=== PATIENT | female | born 1935 | race Two or more races ===

== ENCOUNTER → 2016-10-24 | Outpatient (CLI) | payer MEDICARE, OTHER | END | disposition home or self-care (01) | LOC: Rad HDHVI 10:17 | PROVIDERS: ATTEND Internal Medicine Cardiovascular Disease | DX: Z01.818 Encounter for other preprocedural examination (principal); I70.0 Atherosclerosis of aorta; M51.34 Other intervertebral disc degeneration, thoracic region; R07.9 Chest pain, unspecified | CPT/HCPCS: 71020 ==

== ENCOUNTER → 2016-12-14 | Outpatient (CLI) | payer MEDICARE, OTHER ==
[2016-12-14 12:06] LABS: Urine Bilirubin Negative (Negative); Urine Blood Negative /uL (Negative); Urine Color Yellow (Yellow); Urine Glucose Normal (Normal); Urine Ketone Negative (Negative); Urine Nitrite Negative (Negative); Urine Urobilinogen Normal (Negative); Urine pH 7.5 (5.0-8.0)
[2016-12-14 12:10] LABS: Basophils # (auto) 0 uL; Basophils % (auto) 0.5 % (0.0-2.0); Eosinophils # (auto) 0.2 uL; Eosinophils % (auto) 3.6 % (0.0-7.0); Hematocrit 46.7 % (36.0-46.0); Hemoglobin 15.4 g/dL (12.2-16.2); Lymphocytes # (auto) 1.4 uL; Lymphocytes % (auto) 22.6 % (10.0-50.0); Mean Corpuscular Hemoglobin 30.4 pg (28.0-32.0); Mean Corpuscular Hgb Conc. 32.9 g/dL (32.0-36.0); Mean Corpuscular Volume 92.3 fL (80.0-100.0); Mean Platelet Volume 10.8 fL (7.4-10.4); Monocytes # (auto) 0.5 uL; Monocytes % (auto) 7.9 % (0.0-12.0); Neutrophils % (auto) 65.4 % (37.0-80.0); Platelet Count (auto) 209 10^3/uL (140-450); Red Cell Distribution Width 14.2 % (11.6-16.0); White Blood Cell 6.1 10^3/uL (4.4-10.8)
[2016-12-14 12:39] LABS: Albumin 3.6 g/dL (3.4-5.0); BUN/Creatinine Ratio 21.5; Bilirubin, Direct 0.2 mg/dL (0-0.2); Bilirubin, Total 0.5 mg/dL (0.2-1.0); Calcium 8.6 mg/dL (8.5-10.1); Potassium 4.3 mmol/L (3.5-5.1); Total Protein 7.7 g/dL (6.4-8.2)
== END | disposition home or self-care (01) ==
LOC: LAB 09:03
PROVIDERS: ATTEND Internal Medicine Cardiovascular Disease
DX: I10 Essential (primary) hypertension (principal); E78.00 Pure hypercholesterolemia, unspecified; K74.1 Hepatic sclerosis; E11.9 Type 2 diabetes mellitus without complications; E03.9 Hypothyroidism, unspecified; D64.9 Anemia, unspecified; E55.9 Vitamin D deficiency, unspecified; N39.0 Urinary tract infection, site not specified
CPT/HCPCS: 36415; 80048; 80061; 80076; 81003; 82306; 83036; 84439; 84443; 85025

== ENCOUNTER → 2017-06-27 | Outpatient (CLI) | payer MEDICARE, OTHER ==
[2017-06-27 12:41] LABS: Urine Bilirubin Negative (Negative); Urine Blood Negative /uL (Negative); Urine Color Yellow (Yellow); Urine Glucose Normal (Normal); Urine Ketone Negative (Negative); Urine Nitrite Negative (Negative); Urine RBC 1 /hpf (0 - 4); Urine Squamous Epithelial Cell FEW /hpf (<5); Urine Urobilinogen Normal (Negative)
== END | disposition home or self-care (01) ==
LOC: LAB 09:45
PROVIDERS: ATTEND Internal Medicine Cardiovascular Disease
DX: N39.0 Urinary tract infection, site not specified (principal)
CPT/HCPCS: 81001; 87086

== ENCOUNTER → 2017-07-25 | Outpatient (CLI) | payer MEDICARE, OTHER ==
[2017-07-25 11:52] LABS: Basophils # (auto) 0 uL; Basophils % (auto) 0.6 % (0.0-2.0); Eosinophils # (auto) 0.2 uL; Eosinophils % (auto) 3.8 % (0.0-7.0); Hematocrit 46.1 % (36.0-46.0); Hemoglobin 15.2 g/dL (12.2-16.2); Lymphocytes # (auto) 1.3 uL; Lymphocytes % (auto) 21.7 % (10.0-50.0); Mean Corpuscular Hemoglobin 30.7 pg (28.0-32.0); Mean Corpuscular Hgb Conc. 32.9 g/dL (32.0-36.0); Mean Corpuscular Volume 93.2 fL (80.0-100.0); Monocytes # (auto) 0.4 uL; Monocytes % (auto) 7.6 % (0.0-12.0); Neutrophils # (auto) 3.9 uL; Neutrophils % (auto) 66.3 % (37.0-80.0); Nucleated Red Blood Cells % 0.3 %; Platelet Count (auto) 210 10^3/uL (140-450); Red Blood Cells 4.94 10^6/uL (4.0-5.20); Red Cell Distribution Width 13.6 % (11.8-14.3); White Blood Cell 5.9 10^3/uL (4.4-10.8)
[2017-07-25 11:54] LABS: Urine Blood TRACE /uL (Negative); Urine Specific Gravity 1.013 (1.001-1.035)
[2017-07-25 12:16] LABS: Potassium 4.2 mmol/L (3.5-5.1)
[2017-07-25 12:17] LABS: Albumin 3.6 g/dL (3.4-5.0); Bilirubin, Direct 0.1 mg/dL (0-0.2); Bilirubin, Total 0.5 mg/dL (0.2-1.0); Calcium 8.5 mg/dL (8.5-10.1); Total Protein 7.3 g/dL (6.4-8.2)
== END | disposition home or self-care (01) ==
LOC: LAB 08:10
PROVIDERS: ATTEND Internal Medicine Cardiovascular Disease
DX: E78.00 Pure hypercholesterolemia, unspecified (principal); D64.9 Anemia, unspecified; I10 Essential (primary) hypertension; E11.9 Type 2 diabetes mellitus without complications; E03.9 Hypothyroidism, unspecified; E55.9 Vitamin D deficiency, unspecified; K74.1 Hepatic sclerosis; N39.0 Urinary tract infection, site not specified
CPT/HCPCS: 36415; 80048; 80061; 80076; 81003; 82306; 83036; 84443; 85025

== ENCOUNTER → 2018-01-16 | Outpatient (CLI) | payer MEDICARE, OTHER ==
[2018-01-16 12:17] LABS: Urine Blood TRACE /uL (Negative); Urine Specific Gravity 1.012 (1.001-1.035)
[2018-01-16 12:48] LABS: Albumin 3.7 g/dL (3.4-5.0); BUN/Creatinine Ratio 18.4; Bilirubin, Total 0.6 mg/dL (0.2-1.0); Calcium 9.2 mg/dL (8.5-10.1); Potassium 4.2 mmol/L (3.5-5.1); Total Protein 7.5 g/dL (6.4-8.2)
== END | disposition home or self-care (01) ==
LOC: LAB 08:58
PROVIDERS: ATTEND Internal Medicine
DX: E78.5 Hyperlipidemia, unspecified (principal); E03.9 Hypothyroidism, unspecified; I10 Essential (primary) hypertension; N39.0 Urinary tract infection, site not specified; E11.9 Type 2 diabetes mellitus without complications; E78.00 Pure hypercholesterolemia, unspecified; J44.9 Chronic obstructive pulmonary disease, unspecified
CPT/HCPCS: 36415; 80053; 80061; 81003; 84439; 84443; 87086

== ENCOUNTER → 2018-04-30 | Outpatient (CLI) | payer OTHER ==
[2018-04-30 12:25] LABS: Urine Blood Negative /uL (Negative); Urine Specific Gravity 1.007 (1.001-1.035)
== END | disposition home or self-care (01) ==
LOC: LAB 09:13
PROVIDERS: ATTEND Internal Medicine
DX: N39.0 Urinary tract infection, site not specified (principal)
CPT/HCPCS: 81003; 87086

== ENCOUNTER → 2018-07-18 | Outpatient (CLI) | payer OTHER ==
[2018-07-18 12:28] LABS: Basophils # (auto) 0 uL; Basophils % (auto) 0.6 % (0.0-2.0); Eosinophils # (auto) 0.2 uL; Eosinophils % (auto) 3.6 % (0.0-7.0); Hematocrit 50.1 % (36.0-46.0); Hemoglobin 16.2 g/dL (12.2-16.2); Lymphocytes # (auto) 1.1 uL; Lymphocytes % (auto) 18.4 % (10.0-50.0); Mean Corpuscular Hemoglobin 30.4 pg (28.0-32.0); Mean Corpuscular Hgb Conc. 32.4 g/dL (32.0-36.0); Mean Corpuscular Volume 93.8 fL (80.0-100.0); Monocytes # (auto) 0.4 uL; Monocytes % (auto) 6.4 % (0.0-12.0); Neutrophils # (auto) 4.3 uL; Nucleated Red Blood Cells % 0.2 %; Platelet Count (auto) 200 10^3/uL (140-450); Red Blood Cells 5.34 10^6/uL (4.0-5.20); Red Cell Distribution Width 14.5 % (11.8-14.3); White Blood Cell 6.1 10^3/uL (4.4-10.8)
[2018-07-18 12:31] LABS: Urine Blood Negative /uL (Negative); Urine Specific Gravity 1.013 (1.001-1.035)
[2018-07-18 13:15] LABS: Albumin 3.4 g/dL (3.4-5.0); Calcium 8.4 mg/dL (8.5-10.1); Free T4 (Free Thyroxine) 1.3 ng/dL (0.89-1.76)
[2018-07-18 13:19] LABS: BUN/Creatinine Ratio 18.9; Bilirubin, Total 0.7 mg/dL (0.2-1.0); Total Protein 7.3 g/dL (6.4-8.2)
== END | disposition home or self-care (01) ==
LOC: LAB 09:30
PROVIDERS: ATTEND Internal Medicine
DX: E78.5 Hyperlipidemia, unspecified (principal); I10 Essential (primary) hypertension; E03.9 Hypothyroidism, unspecified; E55.9 Vitamin D deficiency, unspecified; E11.9 Type 2 diabetes mellitus without complications; D51.9 Vitamin B12 deficiency anemia, unspecified; N39.0 Urinary tract infection, site not specified
CPT/HCPCS: 36415; 80053; 80061; 81003; 82306; 82607; 83036; 84439; 84443; 85025; 87086

== ENCOUNTER → 2018-10-16 | Outpatient (CLI) | payer MEDICARE, BC | END | disposition home or self-care (01) | LOC: LAB 08:57 | PROVIDERS: ATTEND Internal Medicine | DX: E55.9 Vitamin D deficiency, unspecified (principal) | CPT/HCPCS: 82306 ==

== ENCOUNTER → 2019-08-12 | Outpatient (CLI) | payer MEDICARE, BC ==
[2019-08-12 12:27] LABS: Basophils # (auto) 0 uL; Basophils % (auto) 0.6 % (0.0-2.0); Eosinophils # (auto) 0.3 uL; Eosinophils % (auto) 4.2 % (0.0-7.0); Hematocrit 48.3 % (36.0-46.0); Hemoglobin 15.9 g/dL (12.2-16.2); Lymphocytes # (auto) 1.4 uL; Lymphocytes % (auto) 22.8 % (10.0-50.0); Mean Corpuscular Hemoglobin 30.9 pg (28.0-32.0); Mean Corpuscular Volume 93.7 fL (80.0-100.0); Monocytes # (auto) 0.5 uL; Monocytes % (auto) 7.7 % (0.0-12.0); Neutrophils # (auto) 3.9 uL; Neutrophils % (auto) 64.7 % (37.0-80.0); Nucleated Red Blood Cells % 0.1 %; Platelet Count (auto) 189 10^3/uL (140-450); Red Blood Cells 5.15 10^6/uL (4.0-5.20); Red Cell Distribution Width 14.4 % (11.8-14.3)
[2019-08-12 12:31] LABS: Urine Blood TRACE /uL (Negative); Urine Specific Gravity 1.005 (1.001-1.035)
[2019-08-12 12:45] LABS: Potassium 4.2 mmol/L (3.5-5.1)
[2019-08-12 12:47] LABS: Free T4 (Free Thyroxine) 1.42 ng/dL (0.89-1.76)
[2019-08-12 12:56] LABS: Albumin 3.6 g/dL (3.4-5.0); BUN/Creatinine Ratio 19.7; Bilirubin, Total 0.5 mg/dL (0.2-1.0); Calcium 8.9 mg/dL (8.5-10.1); Total Protein 7.5 g/dL (6.4-8.2)
== END | disposition home or self-care (01) ==
LOC: Rad HDHVI 09:29
PROVIDERS: ATTEND Internal Medicine
DX: M85.9 Disorder of bone density and structure, unspecified (principal); M85.80 Other specified disorders of bone density and structure, unspecified site; E03.9 Hypothyroidism, unspecified; K90.9 Intestinal malabsorption, unspecified; N39.0 Urinary tract infection, site not specified; D51.9 Vitamin B12 deficiency anemia, unspecified; Z79.899 Other long term (current) drug therapy
CPT/HCPCS: 36415; 77078; 80053; 80061; 81003; 82306; 82607; 83036; 84439; 84443; 85025; 87086

== ENCOUNTER → 2019-11-11 | Outpatient (CLI) | payer MEDICARE, BC ==
[2019-11-11 12:36] LABS: Albumin 3.5 g/dL (3.4-5.0); Bilirubin, Direct 0.1 mg/dL (0-0.2); Bilirubin, Total 0.6 mg/dL (0.2-1.0); Total Protein 7.8 g/dL (6.4-8.2)
[2019-11-11 12:52] LABS: Hepatitis B Surface Antibody Negative
[2019-11-11 17:26] LABS: Hepatitis B Core Total AB Negative; Hepatitis C Antibody Negative (Negative)
[2019-11-11 17:28] LABS: Hepatitis B Surface Antigen Negative (Negative)
[2019-11-12 20:18] LABS: Hepatitis A Total Antibody Negative
== END | disposition home or self-care (01) ==
LOC: LAB 10:27
PROVIDERS: ATTEND Internal Medicine
DX: Z79.899 Other long term (current) drug therapy (principal); Z20.5 Contact with and (suspected) exposure to viral hepatitis; Z11.59 Encounter for screening for other viral diseases
CPT/HCPCS: 36415; 80076; 86704; 86706; 86708; 86803; 87340

== ENCOUNTER → 2019-12-16 | Outpatient (CLI) | payer MEDICARE, BC ==
[2019-12-16 12:44] LABS: Albumin 3.4 g/dL (3.4-5.0); Bilirubin, Direct 0.1 mg/dL (0-0.2); Bilirubin, Total 0.5 mg/dL (0.2-1.0); Total Protein 7.4 g/dL (6.4-8.2)
== END | disposition home or self-care (01) ==
LOC: LAB 09:59
PROVIDERS: ATTEND Internal Medicine Cardiovascular Disease
DX: E78.5 Hyperlipidemia, unspecified (principal); Z79.899 Other long term (current) drug therapy
CPT/HCPCS: 36415; 80061; 80076

== ENCOUNTER → 2020-07-27 | Outpatient (CLI) | payer MEDICARE, BC ==
[2020-07-27 11:32] LABS: Basophils # (auto) 0 10 ^3/uL (0-0.2); Basophils % (auto) 0.7 % (0.0-2.0); Eosinophils # (auto) 0.2 10 ^3/uL (0-0.8); Eosinophils % (auto) 2.9 % (0.0-7.0); Hematocrit 45.6 % (36.0-46.0); Hemoglobin 15.4 g/dL (12.2-16.2); Lymphocytes # (auto) 1.2 10 ^3/uL (0.4-5.4); Lymphocytes % (auto) 22.7 % (10.0-50.0); Mean Corpuscular Hemoglobin 31.4 pg (28.0-32.0); Mean Corpuscular Hgb Conc. 33.8 g/dL (32.0-36.0); Mean Corpuscular Volume 92.8 fL (80.0-100.0); Monocytes # (auto) 0.4 10 ^3/uL (0-1.3); Monocytes % (auto) 7.9 % (0.0-12.0); Neutrophils # (auto) 3.4 10 ^3/uL (1.6-8.6); Neutrophils % (auto) 65.8 % (37.0-80.0); Platelet Count (auto) 204 10^3/uL (140-450); Red Blood Cells 4.91 10^6/uL (4.0-5.20); Red Cell Distribution Width 14.2 % (11.8-14.3); White Blood Cell 5.2 10^3/uL (4.4-10.8)
[2020-07-27 11:37] LABS: Urine Blood Negative /uL (Negative); Urine Specific Gravity 1.015 (1.001-1.035)
[2020-07-27 11:57] LABS: Potassium 4.2 mmol/L (3.5-5.1)
[2020-07-27 12:16] LABS: Free T4 (Free Thyroxine) 1.31 ng/dL (0.89-1.76)
[2020-07-27 12:31] LABS: Albumin 3.7 g/dL (3.4-5.0); BUN/Creatinine Ratio 17.3; Bilirubin, Total 0.6 mg/dL (0.2-1.0); Calcium 8.8 mg/dL (8.5-10.1); Total Protein 7.7 g/dL (6.4-8.2)
== END | disposition home or self-care (01) ==
LOC: LAB 09:57
PROVIDERS: ATTEND Internal Medicine
DX: D51.3 Other dietary vitamin B12 deficiency anemia (principal); I10 Essential (primary) hypertension; E11.9 Type 2 diabetes mellitus without complications; E55.9 Vitamin D deficiency, unspecified; R00.2 Palpitations; R53.1 Weakness; R30.0 Dysuria
CPT/HCPCS: 36415; 80053; 80061; 81003; 82306; 82607; 83036; 84439; 84443; 85025; 87086

== ENCOUNTER → 2021-07-28 | Outpatient (CLI) | payer MEDICARE, BC ==
[2021-07-28 11:24] LABS: Basophils # (auto) 0.1 10 ^3/uL (0-0.2); Basophils % (auto) 1.4 % (0.0-2.0); Eosinophils # (auto) 0.2 10 ^3/uL (0-0.8); Eosinophils % (auto) 3.3 % (0.0-7.0); Hematocrit 47.5 % (36.0-46.0); Hemoglobin 15.6 g/dL (12.2-16.2); Lymphocytes # (auto) 1.2 10 ^3/uL (0.4-5.4); Lymphocytes % (auto) 23.4 % (10.0-50.0); Mean Corpuscular Hemoglobin 30.6 pg (28.0-32.0); Mean Corpuscular Hgb Conc. 32.9 g/dL (32.0-36.0); Monocytes # (auto) 0.4 10 ^3/uL (0-1.3); Monocytes % (auto) 8.1 % (0.0-12.0); Neutrophils # (auto) 3.3 10 ^3/uL (1.6-8.6); Neutrophils % (auto) 63.8 % (37.0-80.0); Nucleated Red Blood Cells % 0.1 %; Red Blood Cells 5.11 10^6/uL (4.0-5.20); Red Cell Distribution Width 13.4 % (11.8-14.3); White Blood Cell 5.1 10^3/uL (4.4-10.8)
[2021-07-28 11:27] LABS: Urine Blood TRACE /uL (Negative)
[2021-07-28 11:49] LABS: Potassium 4.3 mmol/L (3.5-5.1)
[2021-07-28 11:55] LABS: Albumin 3.5 g/dL (3.4-5.0); BUN/Creatinine Ratio 18.9; Bilirubin, Total 0.4 mg/dL (0.2-1.0); Calcium 8.8 mg/dL (8.5-10.1)
[2021-07-28 11:59] LABS: Free T4 (Free Thyroxine) 1.63 ng/dL (0.89-1.76)
== END | disposition home or self-care (01) ==
LOC: LAB 09:02
PROVIDERS: ATTEND Internal Medicine
DX: D51.3 Other dietary vitamin B12 deficiency anemia (principal); I10 Essential (primary) hypertension; E11.9 Type 2 diabetes mellitus without complications; E55.9 Vitamin D deficiency, unspecified; D64.9 Anemia, unspecified; R00.2 Palpitations; R53.1 Weakness; R30.0 Dysuria
CPT/HCPCS: 36415; 80053; 80061; 81003; 82306; 82607; 83036; 84439; 84443; 85025; 87086

== ENCOUNTER → 2024-01-01 | Outpatient (CLI) | payer MEDICARE, BC | END | disposition home or self-care (01) | LOC: Rad HDHVI 12:35 | PROVIDERS: ATTEND Internal Medicine Cardiovascular Disease | DX: I65.23 Occlusion and stenosis of bilateral carotid arteries (principal); I10 Essential (primary) hypertension | CPT/HCPCS: 93880 ==

== ENCOUNTER → 2024-04-12 | Outpatient (CLI) | payer MEDICARE, BC | END | disposition home or self-care (01) | LOC: Rad HDHVI 09:58 | PROVIDERS: ATTEND Internal Medicine Cardiovascular Disease | DX: R00.2 Palpitations (principal); I50.33 Acute on chronic diastolic (congestive) heart failure | CPT/HCPCS: 93306 ==

== ENCOUNTER → 2024-04-16 | Outpatient (CLI) | payer MEDICARE, BC ==
[~2024-04-16] VITALS: Ht 162.6 cm; Wt 68.0 kg
[~2024-04-16] MED LIST: ADENOSINE 57 MG in GIVE UN-DILUTED 0 ML IV ONE; ADENOSINE 90 MG/30 ML INJ IV ONE
== END | disposition home or self-care (01) ==
LOC: Rad HDHVI 12:27
PROVIDERS: ATTEND Internal Medicine Cardiovascular Disease
DX: I11.0 Hypertensive heart disease with heart failure (principal); I50.33 Acute on chronic diastolic (congestive) heart failure; E78.5 Hyperlipidemia, unspecified
CPT/HCPCS: 78452; 93005; 96374; 96375; A9500; J0153

== ENCOUNTER → 2024-09-30 | Outpatient (CLI) | payer MEDICARE, BC ==
[~2024-09-30] MED LIST changes: -ADENOSINE 57 MG in GIVE UN-DILUTED 0 ML IV ONE; -ADENOSINE 90 MG/30 ML INJ IV ONE; +ASPI-543 PO; +DICL1GEL59 EX; +DOCU-94 PO; +GLUC1CAP12 PO; +LEVO100T8 PO; +MULT-733 OR; +OMEG-20 PO; +POM; +POM PO; +SIMV20TA20 PO; +TRIA37.587 PO
[2024-09-30] MEDS: cloNIDine HCL 0.1 MG TAB ONE (10:06)
[2024-09-30 10:23] VITALS: BP 184/85; PULSE 78; RESP 20; O2SAT 94
[2024-09-30] MEDS: cloNIDine HCL 0.1 MG TAB PO ONE (11:05)
[2024-09-30 11:45] VITALS: BP 181/66; PULSE 69; RESP 20; O2SAT 94
--- NOTE | 2024-09-30 12:37 | DVH ---
EXAM: XY CHEST TWO VIEWS ROUTINE CLINICAL HISTORY: Pain COMPARISON: None TECHNIQUE: Frontal and lateral view of the chest was obtained FINDINGS: Lines and Tubes: None Lungs: No focal consolidation. Pleura: No effusion. No pneumothorax. Cardiomediastinal contours: Unremarkable. Atherosclerotic vascular calcifications of the thoracic aor ta are noted. Bones: No acute osseous abnormality. IMPRESSION: No acute cardiopulmonary disease.
== END | disposition home or self-care (01) ==
LOC: Rad HDHVI 10:06
PROVIDERS: ATTEND Internal Medicine Cardiovascular Disease
DX: Z01.818 Encounter for other preprocedural examination (principal); I70.0 Atherosclerosis of aorta
CPT/HCPCS: 71046; 93005; G0463

== ENCOUNTER 2024-10-08 11:20 | Day surgery (SDC) | payer MEDICARE, BC ==
[2024-09-30 13:49] LABS: Basophils # (auto) 0.1 10 ^3/uL (0-0.2); Basophils % (auto) 0.7 % (0.0-2.0); Eosinophils # (auto) 0.2 10 ^3/uL (0-0.8); Eosinophils % (auto) 1.9 % (0.0-7.0); Hematocrit 46.6 % (36.0-46.0); Hemoglobin 15.6 g/dL (12.2-16.2); Lymphocytes # (auto) 1.7 10 ^3/uL (0.4-5.4); Lymphocytes % (auto) 20.2 % (10.0-50.0); Mean Corpuscular Hemoglobin 30.8 pg (28.0-32.0); Mean Corpuscular Hgb Conc. 33.6 g/dL (32.0-36.0); Mean Corpuscular Volume 91.6 fL (80.0-100.0); Monocytes # (auto) 0.6 10 ^3/uL (0-1.3); Monocytes % (auto) 7.2 % (0.0-12.0); Neutrophils # (auto) 5.8 10 ^3/uL (1.6-8.6); Nucleated Red Blood Cells % 0.1 %; Platelet Count (auto) 188 10^3/uL (140-450); Red Blood Cells 5.08 10^6/uL (4.0-5.20); Red Cell Distribution Width 14.1 % (11.8-14.3); White Blood Cell 8.4 10^3/uL (4.4-10.8)
[2024-09-30 13:57] LABS: INR 0.98 (0.9-1.15); Partial Thromboplastin Time 26.8 SEC (24.5-34.5); Prothrombin Time 10.4 sec (9.3-11.8)
[2024-09-30 14:16] LABS: Anion Gap 5 (5-15); Carbon Dioxide 29 mmol/L (20-31); Chloride 106 mmol/L (98-107); Potassium 4.3 mmol/L (3.5-5.1); Sodium 140 mmol/L (136-145)
[2024-09-30 14:17] LABS: Calcium 9.7 mg/dL (8.7-10.4)
[2024-09-30 14:22] LABS: BUN/Creatinine Ratio 18.3 (10.0-20.0); Blood Urea Nitrogen 13 mg/dL (9-23); Glucose 97 mg/dL (74-106)
[~2024-10-08] VITALS: Ht 162.6 cm; Wt 72.6 kg
[2024-10-08] VITALS (8 sets, daily range): BP systolic 127–176; BP diastolic 77–90; PULSE 62–78; RESP 14–21; O2SAT 92–98
[~2024-10-08 11:20] MED LIST changes: +HEPARIN IN NS 1000Units/500mL 1,500 ML ONE; +IOHEXOL 350 MG/ML 100ML IJ ONE
[2024-10-08] MEDS ORDERED: ANGIOMAX 250 MG VIAL IV ONE (11:47)
[2024-10-08] MEDS ORDERED: fentaNYL CITRATE 100 MCG/2 ML VL ONE (11:47)
[2024-10-08] MEDS ORDERED: MIDAZOLAM HCL 2MG/2ML 2ml VIAL (1mg/ml) ONE (11:48)
[2024-10-08] MEDS ORDERED: LIDOCAINE 2%HCL (LOCAL ANESTH.) INJ 20ML MDV ONE (11:48)
[2024-10-08] MEDS ORDERED: SODIUM CHL 0.9% 50 ML ONE (11:48)
[2024-10-08] MEDS ORDERED: NITROGLYCERIN 0.4MG/DOSE SPRAY 4.9GM ONE (13:18)
[2024-10-08] MEDS ORDERED: TICAGRELOR 90 MG TAB ONE ×2 (13:39→13:44)
--- NOTE | 2024-10-08 14:47 | DVHOP ---
DATE OF SURGERY: 10/08/2024 PROCEDURES PERFORMED: * Selective left and right coronary angiography. * Ventriculogram. * Shockwave of the right coronary artery with thrombectomy. FFR of the right coronary artery, midportion. * Angioplasty with stent placement of the RCA with a 2.75 x 15 mm Riki [place] stent. * Conscious sedation. DESCRIPTION OF PROCEDURE: The patient was prepped and draped in a sterile condition. 1% Xylocaine was used to anesthetize the right groin. Using a Cook needle, the right femoral artery was engaged with Seldinger technique, a 6-Guamanian sheath in the right femoral artery. Using 6-Guamanian JL4 catheter and 6-[place]aman[place] JR4 catheter, selective left and right coronary angiographies were performed. Using 6-[place]amanian pigtail catheter, ventriculogram was done. Following the coronary angiography, we proceeded to angioplasty. Using 6-[place] JR4 guide catheter, the RCA was cannulated. Using a ChoICE PT extra support wire, the RCA mid-lesion was then crossed. FFR was then performed. Then, we did a thrombectomy, shockwave treatment of the mid-RCA with a 2.5 x 12 mm shockwave thrombectomy balloon catheter. Following the intervention, a 2.75 x 15 mm [place] Resolute stent was then deployed across the lesion at 14 atmospheres. There were no complications. The patient tolerated the procedure well. Right femoral arteriotomy site was then closed using the Angio-Seal device. RESULTS: * Left main had a distal 80% narrowing at the bifurcation of the circumflex and the coronary artery. * Left anterior descending artery, mild intimal irregularity without any flow restrictive lesion. * Circumflex, mild intimal irregularity without any flow restrictive lesion. * Right coronary artery had a 80-90% mid-lesion. Otherwise, no flow restrictive lesion. The patient underwent angioplasty with stent placement with a 2.75 x 15 mm [place] Resolute stent with less than 10% residual stenosis. Following thrombectomy, shockwave treatment of the lesion and FFR confirming it. The patient had an FFR of 7.77, consistent with hemodynamically significant lesion in the RCA. We will continue to follow the patient. The patient will require angioplasty with stent placement of the left main at a later date. It is more complex lesion that requires double wiring and also require a simultaneous stent placement in the RCA and in the LAD. Saeed Guerrier MD SA/CASSI/MIGUELITO TID: [id number] RECEIPT: [id number]
--- NOTE | 2024-10-08 14:48 | DVHDS ---
DATE OF DISCHARGE: 10/08/2024 DISCHARGE DIAGNOSES: * Coronary artery disease. * Status post angioplasty with stent placement of the mid RCA. * Hypertension. * Hyperlipidemia. HOSPITAL COURSE: The patient with a diastolic dysfunction. Ejection fraction by angiography shows an EF around 60% with an LVEDP of 15-16 mmHg with no gradient across the aortic valve. The patient underwent successful angioplasty with stent placement of the RCA with thrombectomy and with FFR performed. At this time, the patient is stable at the time of discharge. DISPOSITION: Home. ACTIVITY: As instructed. DIET: Will be 2 gram sodium diet. We will continue to follow the patient. He is put on dual-antiplatelet therapy as well. Saeed Guerrier MD SA/MIGUELITO TID: [id number] RECEIPT: [id number]
--- NOTE | 2024-10-09 10:40 | DVHHP ---
ADMIT DATE: 10/08/2024 HISTORY OF PRESENT ILLNESS: The patient who is 89 years old, with history of coronary artery disease. Now with signs and symptom complex of chest pain. Shortness of breath. The patient was having increasing dyspnea on exertion, which she has never had before. Risk factors include hyperlipidemia, hypertension. At this time, stress test shows the patient to have inferior wall reversibility; and because of above presentation, it is felt that the patient should undergo coronary angiography to define coronary anatomy. Risks and benefits were explained to the patient. REVIEW OF SYSTEMS: She denies any fever or chills, melena, hematochezia, hematemesis, hemoptysis, or hematuria. Denies any GI symptomatology such as inflammatory bowel disease and irritable bowel syndrome. She denies any history of liver disease. No kidney disease. Denies any history of lung disease. No history of tobacco, alcohol, or any other illicit drug use. She denies any previous history of seizures or movement disorders. PHYSICAL EXAMINATION: VITAL SIGNS: Blood pressure is markedly elevated 190/80, pulse of 70, O2 saturation 97% on 2 liters. HEENT: Pupils are reactive. Funduscopic exam shows no AV nicking, no exudates, no papilledema. Extraocular muscles . Sclerae anicteric. Oral mucosa moist. Posterior pharynx without any exudates. NECK: No JVD appreciated. Carotid pulses are 2+ symmetrical with normal upstroke and contour. PULMONARY: Clear to auscultation. CARDIOVASCULAR: Regular rate without S3, without S4. PMI is not displaced. ABDOMEN: Soft, nontender, normal bowel sounds. SKIN: Unremarkable. EXTREMITIES: Unremarkable. 2+ pulses bilaterally. PLAN: Thus, the patient with ongoing chest pain, abnormal stress test, now to undergo coronary angiography to define coronary anatomy. Further recommendations after the angiogram. Saeed Guerrier MD SA/JERALD/MIGUELITO TID: [id number] RECEIPT: [id number]
== END 2024-10-08 16:08 | disposition home or self-care (01) ==
LOC: CATH 11:20
PROVIDERS: ATTEND Internal Medicine Cardiovascular Disease
DX: I25.10 Atherosclerotic heart disease of native coronary artery without angina pectoris (principal); R94.39 Abnormal result of other cardiovascular function study; E78.5 Hyperlipidemia, unspecified; I10 Essential (primary) hypertension; R06.09 Other forms of dyspnea; R06.02 Shortness of breath; R07.9 Chest pain, unspecified; Z79.890 Hormone replacement therapy; Z79.82 Long term (current) use of aspirin; Z79.899 Other long term (current) drug therapy
CPT/HCPCS: 0523T; 36415; 80048; 85025; 85610; 85730; 92972; 92973; 93458; C1760; C1761; C1769; C1874; C1887; C1894; C9600; J0583; J1644; J2250; J3010; J7030; Q9967; 99152; 99153

== ENCOUNTER → 2024-10-18 | Outpatient (CLI) | payer MEDICARE, BC ==
[~2024-10-18] MED LIST changes: -HEPARIN IN NS 1000Units/500mL 1,500 ML ONE; -IOHEXOL 350 MG/ML 100ML IJ ONE
[2024-10-18 11:50] VITALS: BP 215/77; PULSE 77; RESP 18; O2SAT 97
[2024-10-18 13:30] VITALS: BP 160/68; PULSE 68; RESP 16; O2SAT 97
== END | disposition home or self-care (01) ==
LOC: CHF HDHVI 12:54
PROVIDERS: ATTEND Internal Medicine Cardiovascular Disease
DX: I11.0 Hypertensive heart disease with heart failure (principal); I50.33 Acute on chronic diastolic (congestive) heart failure; I25.10 Atherosclerotic heart disease of native coronary artery without angina pectoris; J44.9 Chronic obstructive pulmonary disease, unspecified; E11.9 Type 2 diabetes mellitus without complications; E03.9 Hypothyroidism, unspecified; E78.5 Hyperlipidemia, unspecified; Z78.0 Asymptomatic menopausal state; Z79.899 Other long term (current) drug therapy
CPT/HCPCS: G0463

== ENCOUNTER → 2024-11-19 | Outpatient (CLI) | payer MEDICARE, BC ==
[~2024-11-19] MED LIST changes: +CILO100T3 PO; +CLOP75TA28 PO; -DICL1GEL59 EX; +DICL1GEL59 TOP; +IOHEXOL 350 MG/ML 100ML IJ ONE; -MULT-733 OR; +MULT-733 PO; +MULT1TAB28 PO; +SACU1TAB PO
[2024-11-19 10:28] VITALS: BP 138/67; PULSE 78; RESP 16; O2SAT 95
[2024-11-19 10:43] VITALS: BP 132/68; PULSE 77; RESP 16; O2SAT 95
--- NOTE | 2024-11-19 13:06 | DVH ---
XY CHEST TWO VIEWS ROUTINE CLINICAL HISTORY: PRE OP CARDIAC CLEARANCE, pain COMPARISON: XY CHEST TWO VIEWS ROUTINE on DOS: 09/30/24 TECHNIQUE: Frontal and lateral view of the chest was obtained FINDINGS: Lines and Tubes: None Lungs: No focal consolidation. Pleura: No effusion. No pneumothorax. Cardiomediastinal contours: Unremarkable Bones: No acute osseous abnormality. IMPRESSION: No acute cardiopulmonary disease.
== END | disposition home or self-care (01) ==
LOC: Rad HDHVI 10:08
PROVIDERS: ATTEND Internal Medicine Cardiovascular Disease
DX: Z01.818 Encounter for other preprocedural examination (principal); I49.3 Ventricular premature depolarization; R94.31 Abnormal electrocardiogram [ECG] [EKG]; I25.10 Atherosclerotic heart disease of native coronary artery without angina pectoris
CPT/HCPCS: 71046; 93005; G0463

== ENCOUNTER 2024-11-21 09:05 | Day surgery (SDC) | payer MEDICARE, BC ==
[2024-11-19 11:47] LABS: Basophils # (auto) 0.1 10 ^3/uL (0-0.2); Basophils % (auto) 0.9 % (0.0-2.0); Eosinophils # (auto) 0.2 10 ^3/uL (0-0.8); Eosinophils % (auto) 2.9 % (0.0-7.0); Hematocrit 45.6 % (36.0-46.0); Hemoglobin 15.4 g/dL (12.2-16.2); Lymphocytes # (auto) 1.3 10 ^3/uL (0.4-5.4); Lymphocytes % (auto) 18.8 % (10.0-50.0); Mean Corpuscular Hemoglobin 30.9 pg (28.0-32.0); Mean Corpuscular Hgb Conc. 33.7 g/dL (32.0-36.0); Mean Corpuscular Volume 91.5 fL (80.0-100.0); Monocytes # (auto) 0.6 10 ^3/uL (0-1.3); Monocytes % (auto) 9.4 % (0.0-12.0); Neutrophils # (auto) 4.6 10 ^3/uL (1.6-8.6); Platelet Count (auto) 199 10^3/uL (140-450); Red Blood Cells 4.98 10^6/uL (4.0-5.20); Red Cell Distribution Width 14.6 % (11.8-14.3); White Blood Cell 6.7 10^3/uL (4.4-10.8)
[2024-11-19 11:53] LABS: Chloride 104 mmol/L (98-107); Sodium 141 mmol/L (136-145)
[2024-11-19 11:54] LABS: Anion Gap 6 (5-15); Calcium 10.2 mg/dL (8.7-10.4); Carbon Dioxide 31 mmol/L (20-31)
[2024-11-19 11:58] LABS: INR 0.97 (0.9-1.15); Partial Thromboplastin Time 27.3 SEC (24.5-34.5); Prothrombin Time 10.3 sec (9.3-11.8)
[2024-11-19 11:59] LABS: BUN/Creatinine Ratio 23.2 (10.0-20.0); Blood Urea Nitrogen 19 mg/dL (9-23); Glucose 93 mg/dL (74-106)
[2024-11-19 12:00] LABS: Potassium 5.2 mmol/L (3.5-5.1)
[~2024-11-21] VITALS: Ht 162.6 cm; Wt 71.2 kg
[~2024-11-21 09:05] MED LIST changes: -ASPI-543 PO; -CILO100T3 PO; -IOHEXOL 350 MG/ML 100ML IJ ONE; -POM PO
[2024-11-21] MEDS ORDERED: ANGIOMAX 250 MG VIAL IV ONE (12:21)
[2024-11-21] MEDS ORDERED: fentaNYL CITRATE 100 MCG/2 ML VL ONE (12:21)
[2024-11-21] MEDS ORDERED: LIDOCAINE 2%HCL (LOCAL ANESTH.) INJ 20ML MDV ONE (12:22)
[2024-11-21] MEDS ORDERED: SODIUM CHL 0.9% 50 ML ONE (12:22)
[2024-11-21] MEDS ORDERED: MIDAZOLAM HCL 2MG/2ML 2ml VIAL (1mg/ml) ONE (12:22)
[2024-11-21] MEDS ORDERED: IOHEXOL 350 MG/ML 100ML IJ ONE (12:36)
[2024-11-21] MEDS ORDERED: CLOPIDOGREL BISULFATE 75 MG TAB ONE (13:05)
[2024-11-21 13:19] VITALS: BP 159/72; PULSE 66; RESP 17; TEMP 98.3; O2SAT 97
--- NOTE | 2024-11-21 13:32 | DVHOP ---
DATE OF SURGERY: 11/21/2024 PROCEDURES PERFORMED: * Selective left and right coronary angiography, ventriculogram, angioplasty with shockwave treatment of the mid LAD. * Angioplasty with shockwave of the left main, LAD and circumflex with thrombectomy. * Angioplasty with stent placement with a 2.5 x 15 mm stent into the left main and ostial LAD as well as 2.5 x 15 mm Riki Arist[place] stent in the left main and circumflex ostium deployed simultaneously. There were no complications. The patient tolerated the procedure well. Conscious sedation was given. DESCRIPTION OF PROCEDURE: The patient was prepped and draped in a sterile condition. 1% Xylocaine used to anesthetize the right groin. Using Cook needle, right femoral artery was engaged. Using Seldinger technique, a 6-Stateless sheath in the right femoral artery. Using a 6-Stateless JL4 catheter, a 6-Stateless JL4 catheter, selective left and right coronary angiographies performed. Then, the 6-Stateless diagnostic system was exchanged for a 6-Stateless interventional system. Using a 6-Stateless XB 3.5 guide catheter, the left main was cannulated. Then, a Runthrough wire was placed into the left anterior descending artery. The mid left anterior descending artery was then balloon angioplastied and because of the caliber of the vessel and calcification, shockwave thrombectomy was performed. Following that, a second wire was placed, which was a ChoicePT wire in the circumflex. Both the LAD and the circumflex ostium and distal left were then thrombectomized and shockwaved using a 3 mm shockwave catheter. Following that, 2 simultaneous stents were deployed, 2.5 x 15 and 2.5 x 15 Riki Aristes stents into the distal left main extending into the ostium of the left anterior descending artery and the distal left main extending into the proximal segment of the circumflex. Both stents were deployed at 8 atmospheres, which was nominal. There were no complications. The patient tolerated the procedure well. RESULTS: Distal left main FFR showed an FFR of 0.73 extending into the left anterior descending artery. Left main itself was about 0.87. Post angioplasty with stent placement less than 10% residual stenosis. Distal LAD had an FFR of 0.73 post angioplasty. With shockwave treatment with less than 10% residual stenosis. At this time, there is complete revascularization of the left anterior descending artery, left distal, left main, ostial circumflex as well. The patient is now completely revascularized. Right coronary artery did not show any flow restrictive lesions. Saeed Guerrier MD SA/BRANDEN TID: [id number] RECEIPT: [id number]
[2024-11-21 13:35] VITALS: BP 117/80; PULSE 67; RESP 15; O2SAT 97
[2024-11-21 13:52] VITALS: BP 147/89; PULSE 60; RESP 15; O2SAT 98
--- NOTE | 2024-11-21 13:59 | DVHDS ---
DATE OF DISCHARGE: 11/21/2024 DISCHARGE DIAGNOSES: The patient underwent successful angioplasty with stent placement. Simultaneous stents were placed in the left anterior descending artery, circumflex ostium, and the left main with less than now 10% residual stenosis. The mid LAD had a high-grade narrowing status post angioplasty with thrombectomy of the distal left main with less than 10% residual stenosis. The patient has previous stent of the circumflex obtuse marginal. The patient is now completely revascularized. Aggressive risk modification and dual-antiplatelet therapy will be maintained. Right coronary artery with only mild intimal irregularity. No flow-restrictive lesion. EF is preserved at this time. Continue all current medications. Follow up with me in one week. Stable at the time of discharge. DISPOSITION: Home. ACTIVITY: As instructed. DIET: 2 gram sodium diet. Saeed Guerrier MD SA/JERALD/WHIT TID: [id number] RECEIPT: [id number]
[2024-11-21 14:06] VITALS: BP 168/75; PULSE 64; RESP 16; O2SAT 95
[2024-11-21 14:31] VITALS: BP 163/73; PULSE 72; RESP 18; O2SAT 97
[2024-11-21] MEDS ORDERED: CILO100T3 PO (14:38)
[2024-11-21 15:00] VITALS: BP 151/79; PULSE 71; RESP 17; O2SAT 98
--- NOTE | 2024-11-21 18:36 | DVHHP ---
ADMIT DATE: 11/21/2024 HISTORY OF PRESENT ILLNESS: The patient is 89 years old with a history of coronary artery disease. Approximately on 10/11/2024, the patient underwent angioplasty with stent placement of the circumflex artery, but she had high-grade narrowing of the left main and the mid to distal LAD that was left for further intervention at a later date and she is here for that intervention. Pertinent medical history is significant for a father with coronary artery disease. She has a history of hypertension, otherwise unremarkable. She has been having some increasing shortness of breath, some PND, orthopnea, and some chest pain as well, and a stress test shows significant anterior and lateral wall reversibility and because of the above presentation, it is felt that the patient should undergo angiography. That is when she underwent angioplasty of the circumflex artery. Now, she is here to complete the staged intervention of left main and the mid LAD needs to be revascularized. Risks and benefits were explained to the patient. The patient understands and agrees. She denies any fever or chills. No melena or hematochezia. No syncopal episode. No seizure disorder. No CVA. Denies any tobacco or alcohol use. No drug use. FAMILY HISTORY: As stated above. SOCIAL HISTORY: As stated above. She denies any bleeding diathesis. Currently, she is on Plavix since angioplasty and she took the Plavix this morning. She has been very compliant on her medication as well. The risk of doing a unprotected left main obviously she understands and she agrees to the procedure. PHYSICAL EXAMINATION: VITAL SIGNS: Blood pressure is 132/80, pulse of 67 and regular, O2 saturation 96% on room air. HEENT: Pupils are reactive. Funduscopic exam is benign. Sclerae anicteric. Extraocular muscles are intact. Tympanic membranes are negative. Oral mucosa moist. Posterior pharynx without any exudate. NECK: No JVD appreciated. Carotid pulses are 2+ and symmetrical. No cervical adenopathy. No supraclavicular adenopathy. PULMONARY: Clear to auscultation in all lung flores. CARDIOVASCULAR: Regular rate without S3, without S4. PMI is nondisplaced. ABDOMEN: Soft, nontender. Normal bowel sounds. SKIN: Unremarkable. EXTREMITIES: 2+ pulses. ASSESSMENT AND PLAN: Thus, the patient with left main disease and mid LAD stenosis, now to undergo revascularization. We will continue all current medications. We will continue to follow the patient after the angiogram. Saeed Guerrier MD SA/CARMELO TID: [id number] RECEIPT: [id number]
== END 2024-11-21 15:30 | disposition home or self-care (01) ==
LOC: CATH 09:05
PROVIDERS: ATTEND Internal Medicine Cardiovascular Disease
DX: I25.10 Atherosclerotic heart disease of native coronary artery without angina pectoris (principal); I25.84 Coronary atherosclerosis due to calcified coronary lesion; I10 Essential (primary) hypertension; Z79.890 Hormone replacement therapy; Z79.899 Other long term (current) drug therapy; Z95.5 Presence of coronary angioplasty implant and graft; Z82.49 Family history of ischemic heart disease and other diseases of the circulatory system
CPT/HCPCS: 0523T; 36415; 80048; 85025; 85610; 85730; 92972; 92973; 93454; C1725; C1760; C1761; C1769; C1874; C1887; C1894; C9600; J0583; J1644; J2250; J3010; Q9967; 99152; 99153

== ENCOUNTER 2024-12-17 13:04 | Outpatient (CLI) | payer MEDICARE, BC ==
[~2024-12-17 13:04] MED LIST changes: +CILO100T3 PO; -MULT1TAB28 PO; -POM
== END 2024-12-17 17:00 | disposition home or self-care (01) ==
LOC: Rad HDHVI 13:04
PROVIDERS: ATTEND Internal Medicine Cardiovascular Disease
DX: I08.0 Rheumatic disorders of both mitral and aortic valves (principal)
CPT/HCPCS: 93306